=== PATIENT | female | born 1945 | race Caucasian/White ===

== ENCOUNTER 2017-08-20 08:38 | Inpatient (IN) ==
[2017-08-20] MEDS ORDERED: SODIUM CHLORIDE 0.9% 1,000 ML IV STA (09:01)
[2017-08-20] MEDS ORDERED: ONDANSETRON 4 MG/2 ML VIAL IV STA (09:01)
[2017-08-20] MEDS ORDERED: LOPERAMIDE 2 MG CAPSULE PO STA (09:01)
[2017-08-20] MEDS ORDERED: ONDANSETRON 4 MG/2 ML VIAL ONE (09:17)
[2017-08-20] MEDS ORDERED: LOPERAMIDE 2 MG CAPSULE ONE (09:17)
[2017-08-20 09:41] LABS: Basophils # 0.1 10*3/uL (0.0-0.2); Basophils % 0.7 % (0.0-0.8); Eosinophils # 0.1 10*3/uL (0.0-0.87); Eosinophils % 0.4 % (0.00-10.9); Hematocrit 38.2 VOL% (35.7-47.0); Hemoglobin 12.1 GM/DL (12.0-16.0); Immature Granulocytes % 0.4 %; Immature Granulocytes Absolute 0.06 #; Lymphocytes # 2.4 10*3/uL (1.4-4.0); Lymphocytes % 14.8 % (21.3-54.2); Mean Corpuscular HGB Conc 31.7 GM/DL (32-36); Mean Corpuscular Hemoglobin 24 PG (27-34); Mean Platelet Volume 12.7 FL (9.6-12.0); Monocytes % 12.7 % (1.7-12.7); Neutrophils # 11.3 10*3/uL (1.4-7.4); Platelet Count 221 T/CUMM (130-400); Red Blood Count 4.96 MC/CUMM (3.8-5.5); Red Cell Distribution Width 16.3 % (9.3-17.3); White Blood Count 15.9 T/CUMM (4-12)
[2017-08-20 09:59] LABS: Amorphous Crystals,Urine Occasional /HPF (Few); Apearance,Urine Slightly Hazy (Clear); Bacteria,Urine Occasional /HPF (Few); Blood, Urine Negative (Negative); Glucose,Urine (UA) Negative (Negative); Hyaline Casts,Urine 4 /LPF (0-3); Ketones,Urine Negative (Negative); Mucus,Urine Moderate /LPF (Occasional); Nitrite,Urine Negative (Negative); Protein,Urine 100 MG/DL; RBC,Urine 2 /HPF (0-4); Squamous Epithelial Cell,Urine Occasional /HPF (0-10); Urine Color Amber (Yellow); Urine Specific Gravity 1.041 (1.001-1.035); Urine Urobilinogen < 2.0 EU/DL (0.2-1.0); WBC,Urine 3 /HPF (0-6)
[2017-08-20 10:00] LABS: Bilirubin,Urine Small mg/dL (Negative)
[2017-08-20 10:10] LABS: Band Neutrophils 4 % (0-10); Eosinophils 1 % (0-10); Hypochromasia 2+; Lymphocytes 20 % (20-55); Microcytosis 1+; Ovalocytes Slight; Segmented Neutrophils 67 % (50-85); Total Cells Counted 100
[2017-08-20 10:21] LABS: Albumin 2.9 G/DL (3.4-5.0); Bilirubin,Total 0.5 MG/DL (0.2-1.0); Calcium 8.7 MG/DL (8.5-10.1); Osmolality,Calculated 267.5 MOS/KG (273-304); Potassium 4.2 MMOL/L (3.5-5.1); Total Protein 5.9 G/DL (6.4-8.3)
[2017-08-20 13:15] LABS: Lactic Acid 1.2 MMOL/L (0.4-2.0)
[2017-08-20] MEDS ORDERED: PIPERACILLIN/TAZOBACTAM 3,375 MG in SODIUM CHLORIDE 0.9% 100 ML IV STA (13:27)
[2017-08-20] MEDS ORDERED: PIPERACILLIN/TAZOBACTAM 3,375 MG VIAL IV ONE (13:29)
[2017-08-20] MEDS ORDERED: ACETAMINOPHEN 325 MG TABLET PO PRN (14:15)
[2017-08-20] MEDS ORDERED: ONDANSETRON 4 MG/2 ML VIAL IV PRN (14:15)
[2017-08-20] MEDS ORDERED: DEXTROSE 5% NACL 0.45% 1,000 ML IV SCH (14:30)
[2017-08-20] MEDS ORDERED: HEPARIN 1,000 UNIT/1 ML VIAL IV STA (14:45)
[2017-08-20] MEDS ORDERED: HEPARIN 5,000 UNIT/1 ML VIAL ONE (15:12)
[2017-08-20] MEDS: NYSTATIN 500,000 UNIT/5 ML UDCUP SWISH/SWAL SCH ×2 (17:00→20:38)
[2017-08-20] MEDS: HEPARIN DRIP 25,000 UNITS/500 ML PREMIX IV SCH (17:01)
[2017-08-20] MEDS ORDERED: ALBUTEROL 2.5 MG/3 ML NEB RESP TX PRN (17:30)
[2017-08-20] MEDS ORDERED: ASPIRIN CHEW 81 MG TABLET PO ONE (17:33)
[2017-08-20] MEDS: PANTOPRAZOLE 40 MG TABLET PO SCH (18:21)
[2017-08-20] MEDS: SOTALOL 80 MG TABLET PO SCH (20:36)
[2017-08-20] MEDS: CARVEDILOL 3.125 MG TABLET PO SCH (20:37)
[2017-08-20] MEDS: GABAPENTIN 400 MG CAPSULE PO SCH (20:37)
[2017-08-20] MEDS: MONTELUKAST 10 MG TABLET PO SCH (20:37)
[2017-08-20] MEDS ORDERED: PIPERACILLIN/TAZOBACTAM 3,375 MG in SODIUM CHLORIDE 0.9% 100 ML IV SCH (21:00)
[2017-08-20] MEDS: ALBUTEROL/IPRATROPIUM 3 ML NEB RESP TX SCH (21:25)
[2017-08-20] MEDS: oxyCODONE/ACETAMINOPHEN 5-325 MG TABLET PO PRN (22:25)
[2017-08-21] MEDS: ALBUTEROL/IPRATROPIUM 3 ML NEB RESP TX SCH ×4 (01:45→21:09)
[2017-08-21] MEDS ORDERED: PANTOPRAZOLE 40 MG VIAL IV SCH (09:00)
[2017-08-21] MEDS: GABAPENTIN 400 MG CAPSULE PO SCH ×3 (09:21→21:24)
[2017-08-21] MEDS: SOTALOL 80 MG TABLET PO SCH ×2 (09:21→21:24)
[2017-08-21] MEDS: THEOPHYLLINE ER 300 MG TABLET PO SCH ×2 (09:21→16:38)
[2017-08-21] MEDS: DULoxetine 30 MG CAPSULE PO SCH (09:21)
[2017-08-21] MEDS: NYSTATIN 500,000 UNIT/5 ML UDCUP SWISH/SWAL SCH ×4 (09:22→21:23)
[2017-08-21] MEDS: ASPIRIN CHEW 81 MG TABLET PO SCH (09:22)
[2017-08-21] MEDS: CARVEDILOL 3.125 MG TABLET PO SCH ×2 (09:22→21:23)
[2017-08-21] MEDS: PANTOPRAZOLE 40 MG TABLET PO SCH ×2 (09:22→16:37)
[2017-08-21] MEDS: FUROSEMIDE 40 MG TABLET PO SCH (09:22)
[2017-08-21] MEDS: LINACLOTIDE 145 MCG CAPSULE PO SCH (09:24)
[2017-08-21 10:48] LABS: Basophils # 0.1 10*3/uL (0.0-0.2); Basophils % 0.6 % (0.0-0.8); Eosinophils # 0.1 10*3/uL (0.0-0.87); Eosinophils % 0.5 % (0.00-10.9); Hematocrit 34.9 VOL% (35.7-47.0); Hemoglobin 10.7 GM/DL (12.0-16.0); Immature Granulocytes % 0.7 %; Immature Granulocytes Absolute 0.11 #; Lymphocytes # 2.9 10*3/uL (1.4-4.0); Lymphocytes % 17.9 % (21.3-54.2); Mean Corpuscular HGB Conc 30.7 GM/DL (32-36); Mean Corpuscular Hemoglobin 24 PG (27-34); Mean Corpuscular Volume 78.3 FL (87-102); Mean Platelet Volume 11.9 FL (9.6-12.0); Monocytes # 2.1 10*3/uL (0.11-0.8); Monocytes % 13.5 % (1.7-12.7); Neutrophils # 10.6 10*3/uL (1.4-7.4); Neutrophils % 66.8 % (38.7-73.9); Platelet Count 203 T/CUMM (130-400); Red Blood Count 4.46 MC/CUMM (3.8-5.5); Red Cell Distribution Width 16.3 % (9.3-17.3); White Blood Count 15.9 T/CUMM (4-12)
[2017-08-21 10:58] LABS: INR 1.1; PT Patient Result 11.1 SECS
[2017-08-21 11:06] LABS: Partial Thromboplastin Time 50.3 SECS (0-40)
[2017-08-21 11:08] LABS: Lactic Acid 0.9 MMOL/L (0.4-2.0)
[2017-08-21 11:13] LABS: Band Neutrophils 5 % (0-10); Hypochromasia 2+; Lymphocytes 19 % (20-55); Microcytosis 1+; Ovalocytes Slight; Segmented Neutrophils 66 % (50-85); Total Cells Counted 100
[2017-08-21 11:25] LABS: Albumin 2.7 G/DL (3.4-5.0); Bilirubin,Total 0.4 MG/DL (0.2-1.0); Calcium 8.3 MG/DL (8.5-10.1); Osmolality,Calculated 274.8 MOS/KG (273-304); Potassium 3.3 MMOL/L (3.5-5.1); Total Protein 5.8 G/DL (6.4-8.3)
[2017-08-21] MEDS ORDERED: POTASSIUM CHLORIDE 20 MEQ PACK PO ONE (12:40)
[2017-08-21] MEDS: HEPARIN DRIP 25,000 UNITS/500 ML PREMIX IV SCH (14:03)
[2017-08-21] MEDS: oxyCODONE/ACETAMINOPHEN 5-325 MG TABLET PO PRN ×2 (15:20→22:14)
[2017-08-21] MEDS: ONDANSETRON ODT 4 MG TABLET PO PRN (16:54)
[2017-08-21] MEDS: MONTELUKAST 10 MG TABLET PO SCH (21:24)
[2017-08-22] MEDS: ALBUTEROL/IPRATROPIUM 3 ML NEB RESP TX SCH ×4 (00:14→19:41)
[2017-08-22] MEDS: ONDANSETRON ODT 4 MG TABLET PO PRN ×2 (01:54→18:40)
[2017-08-22 05:10] LABS: Calcium 8.3 MG/DL (8.5-10.1); Magnesium 1.7 MG/DL (1.8-2.4); Potassium 3.4 MMOL/L (3.5-5.1)
[2017-08-22] MEDS ORDERED: DIAZEPAM 5 MG TABLET PO ONE (06:00)
[2017-08-22] MEDS ORDERED: fentaNYL 100 MCG/2 ML VIAL IV ONE (06:00)
[2017-08-22] MEDS ORDERED: MIDAZOLAM 2 MG/2 ML VIAL IV ONE (06:00)
[2017-08-22] MEDS: SOTALOL 80 MG TABLET PO SCH ×2 (09:00→20:34)
[2017-08-22] MEDS: ASPIRIN CHEW 81 MG TABLET PO SCH (09:00)
[2017-08-22] MEDS: GABAPENTIN 400 MG CAPSULE PO SCH ×3 (09:00→20:34)
[2017-08-22] MEDS: PANTOPRAZOLE 40 MG TABLET PO SCH ×2 (09:00→15:56)
[2017-08-22] MEDS: DULoxetine 30 MG CAPSULE PO SCH (09:00)
[2017-08-22] MEDS: FUROSEMIDE 40 MG TABLET PO SCH (09:00)
[2017-08-22] MEDS: CARVEDILOL 3.125 MG TABLET PO SCH ×2 (09:01→20:35)
[2017-08-22] MEDS: NYSTATIN 500,000 UNIT/5 ML UDCUP SWISH/SWAL SCH ×4 (09:01→20:35)
[2017-08-22] MEDS: LINACLOTIDE 145 MCG CAPSULE PO SCH (09:02)
[2017-08-22] MEDS: oxyCODONE/ACETAMINOPHEN 5-325 MG TABLET PO PRN ×2 (09:15→15:35)
[2017-08-22] MEDS: THEOPHYLLINE ER 300 MG TABLET PO SCH ×2 (09:25→16:06)
[2017-08-22] MEDS ORDERED: HEPARIN/NACL 0.9% 2 UNITS/ML 2,000 ML IV ONE (10:20)
[2017-08-22] MEDS ORDERED: MIDAZOLAM 2 MG/2 ML VIAL ONE (10:21)
[2017-08-22] MEDS ORDERED: fentaNYL 100 MCG/2 ML VIAL ONE (10:21)
[2017-08-22] MEDS: CLOPIDOGREL 75 MG TABLET PO SCH (14:38)
[2017-08-22] MEDS: MONTELUKAST 10 MG TABLET PO SCH (20:34)
[2017-08-22] MEDS: APIXABAN 5 MG TABLET PO SCH (20:35)
[2017-08-23] MEDS: ALBUTEROL/IPRATROPIUM 3 ML NEB RESP TX SCH ×4 (01:47→20:23)
[2017-08-23] MEDS: ONDANSETRON ODT 4 MG TABLET PO PRN ×2 (02:47→20:07)
[2017-08-23 05:29] LABS: Basophils # 0.1 10*3/uL (0.0-0.2); Basophils % 0.8 % (0.0-0.8); Eosinophils # 0.1 10*3/uL (0.0-0.87); Eosinophils % 0.5 % (0.00-10.9); Hematocrit 31.4 VOL% (35.7-47.0); Hemoglobin 9.9 GM/DL (12.0-16.0); Immature Granulocytes % 1.6 %; Immature Granulocytes Absolute 0.21 #; Lymphocytes # 2.5 10*3/uL (1.4-4.0); Lymphocytes % 18.8 % (21.3-54.2); Mean Corpuscular HGB Conc 31.5 GM/DL (32-36); Mean Corpuscular Hemoglobin 24 PG (27-34); Mean Corpuscular Volume 76.4 FL (87-102); Mean Platelet Volume 12.8 FL (9.6-12.0); Monocytes % 15.3 % (1.7-12.7); NRBC # 0.02 10*3/uL; Neutrophils # 8.3 10*3/uL (1.4-7.4); Platelet Count 221 T/CUMM (130-400); Red Blood Count 4.11 MC/CUMM (3.8-5.5); Red Cell Distribution Width 16.1 % (9.3-17.3); White Blood Count 13.2 T/CUMM (4-12)
[2017-08-23 05:58] LABS: Calcium 7.9 MG/DL (8.5-10.1); Potassium 3.3 MMOL/L (3.5-5.1)
[2017-08-23 06:11] LABS: Hypochromasia 1+; Microcytosis 1+; Ovalocytes Few; Platelet Estimate Normal
[2017-08-23] MEDS: PANTOPRAZOLE 40 MG TABLET PO SCH ×2 (15:24→16:34)
[2017-08-23] MEDS: THEOPHYLLINE ER 300 MG TABLET PO SCH ×2 (15:28→16:45)
[2017-08-23] MEDS: GABAPENTIN 400 MG CAPSULE PO SCH ×3 (15:28→20:06)
[2017-08-23] MEDS: NYSTATIN 500,000 UNIT/5 ML UDCUP SWISH/SWAL SCH ×4 (15:28→22:35)
[2017-08-23] MEDS: DULoxetine 30 MG CAPSULE PO SCH (15:37)
[2017-08-23] MEDS: CLOPIDOGREL 75 MG TABLET PO SCH (15:38)
[2017-08-23] MEDS: CARVEDILOL 3.125 MG TABLET PO SCH ×2 (15:40→20:06)
[2017-08-23] MEDS: ASPIRIN CHEW 81 MG TABLET PO SCH (15:41)
[2017-08-23] MEDS: APIXABAN 5 MG TABLET PO SCH ×2 (15:42→22:25)
[2017-08-23] MEDS: SOTALOL 80 MG TABLET PO SCH ×2 (15:42→20:06)
[2017-08-23] MEDS: FUROSEMIDE 40 MG TABLET PO SCH (15:42)
[2017-08-23] MEDS: oxyCODONE/ACETAMINOPHEN 5-325 MG TABLET PO PRN ×2 (15:45→23:00)
[2017-08-23] MEDS: POTASSIUM CHLORIDE INJ 30 MEQ in SODIUM CHLORIDE 0.9% 1,000 ML IV SCH (15:47)
[2017-08-23 17:03] LABS: HIV Antigen/Antibody Result Nonreactive (Nonreactive)
[2017-08-23] MEDS: MONTELUKAST 10 MG TABLET PO SCH (20:06)
[2017-08-23 20:07] LABS: Apearance,Urine Slightly Hazy (Clear); Bacteria,Urine Occasional /HPF (Few); Bilirubin,Urine Negative (Negative); Blood, Urine Moderate mg/dL (Negative); Glucose,Urine (UA) Negative (Negative); Hyaline Casts,Urine 4 /LPF (0-3); Ketones,Urine Negative (Negative); Mucus,Urine Occasional /LPF (Occasional); Nitrite,Urine Positive (Negative); Protein,Urine Negative; RBC,Urine 14 /HPF (0-4); Squamous Epithelial Cell,Urine Occasional /HPF (0-10); Urine Color Yellow (Yellow); Urine Urobilinogen < 2.0 EU/DL (0.2-1.0); WBC,Urine 11 /HPF (0-6)
[2017-08-23] MEDS: LINACLOTIDE 145 MCG CAPSULE PO SCH (22:36)
[2017-08-24] MEDS: ALBUTEROL/IPRATROPIUM 3 ML NEB RESP TX SCH ×5 (01:25→20:12)
[2017-08-24 04:06] LABS: Basophils # 0.1 10*3/uL (0.0-0.2); Basophils % 0.5 % (0.0-0.8); Eosinophils # 0.1 10*3/uL (0.0-0.87); Eosinophils % 0.9 % (0.00-10.9); Hematocrit 29.5 VOL% (35.7-47.0); Hemoglobin 8.8 GM/DL (12.0-16.0); Immature Granulocytes % 2.4 %; Immature Granulocytes Absolute 0.29 #; Lymphocytes % 16.6 % (21.3-54.2); Mean Corpuscular HGB Conc 29.8 GM/DL (32-36); Mean Corpuscular Hemoglobin 24 PG (27-34); Mean Corpuscular Volume 80.4 FL (87-102); Mean Platelet Volume 12.4 FL (9.6-12.0); Monocytes # 1.5 10*3/uL (0.11-0.8); Monocytes % 12.6 % (1.7-12.7); Neutrophils # 7.9 10*3/uL (1.4-7.4); Platelet Count 193 T/CUMM (130-400); Red Blood Count 3.67 MC/CUMM (3.8-5.5); Red Cell Distribution Width 16.2 % (9.3-17.3); White Blood Count 11.8 T/CUMM (4-12)
[2017-08-24 04:46] LABS: Calcium 7.9 MG/DL (8.5-10.1); Magnesium 1.6 MG/DL (1.8-2.4); Osmolality,Calculated 273.5 MOS/KG (273-304); Potassium 3.4 MMOL/L (3.5-5.1)
[2017-08-24 05:41] LABS: Band Neutrophils 4 % (0-10); Lymphocytes 13 % (20-55); Metamyelocytes 2 %; Promyelocytes 1 %; Segmented Neutrophils 74 % (50-85); Total Cells Counted 100
[2017-08-24 05:42] LABS: Hypochromasia 1+; Microcytosis 1+; Ovalocytes Few; Platelet Estimate Adequate
[2017-08-24] MEDS: CARVEDILOL 3.125 MG TABLET PO SCH ×3 (06:51→21:23)
[2017-08-24] MEDS: POTASSIUM CHLORIDE INJ 30 MEQ in SODIUM CHLORIDE 0.9% 1,000 ML IV SCH (07:13)
[2017-08-24] MEDS ORDERED: GLUCAGON 1 MG VIAL IM PRN (08:03)
[2017-08-24] MEDS ORDERED: DEXTROSE 50% 25 GM/50 ML VIAL IV PRN (08:03)
[2017-08-24] MEDS: NYSTATIN 500,000 UNIT/5 ML UDCUP SWISH/SWAL SCH ×4 (10:16→21:22)
[2017-08-24] MEDS: SOTALOL 80 MG TABLET PO SCH ×2 (10:17→21:23)
[2017-08-24] MEDS: CLOPIDOGREL 75 MG TABLET PO SCH (10:17)
[2017-08-24] MEDS: ASPIRIN EC 81 MG TABLET PO SCH (10:17)
[2017-08-24] MEDS: FUROSEMIDE 40 MG TABLET PO SCH (10:18)
[2017-08-24] MEDS: DULoxetine 30 MG CAPSULE PO SCH (10:18)
[2017-08-24] MEDS: PANTOPRAZOLE 40 MG TABLET PO SCH ×2 (10:18→18:07)
[2017-08-24] MEDS: THEOPHYLLINE ER 300 MG TABLET PO SCH ×2 (10:18→17:42)
[2017-08-24] MEDS: APIXABAN 5 MG TABLET PO SCH ×2 (10:18→21:23)
[2017-08-24] MEDS: GABAPENTIN 400 MG CAPSULE PO SCH ×3 (10:22→21:22)
[2017-08-24] MEDS ORDERED: LOPERAMIDE 0.2 MG/ML 30 ML/BOTTLE PO ONE (12:11)
[2017-08-24] MEDS ORDERED: LOPERAMIDE 0.2 MG/ML 30 ML/BOTTLE PO PRN (12:12)
[2017-08-24] MEDS: oxyCODONE/ACETAMINOPHEN 5-325 MG TABLET PO PRN ×2 (13:14→21:23)
[2017-08-24] MEDS: LACTOBACILLUS ACIDOPHILUS/BULGARICUS 1 PACKET PO SCH ×2 (15:28→21:33)
[2017-08-24] MEDS: LOPERAMIDE 2 MG CAPSULE PO PRN ×2 (18:07→21:33)
[2017-08-24] MEDS: ONDANSETRON ODT 4 MG TABLET PO PRN (18:07)
[2017-08-24] MEDS: MONTELUKAST 10 MG TABLET PO SCH (21:23)
[2017-08-25] MEDS: ALBUTEROL/IPRATROPIUM 3 ML NEB RESP TX SCH ×4 (02:05→20:56)
[2017-08-25 05:41] LABS: Basophils % 0.3 % (0.0-0.8); Eosinophils # 0.1 10*3/uL (0.0-0.87); Eosinophils % 0.9 % (0.00-10.9); Hematocrit 28.6 VOL% (35.7-47.0); Immature Granulocytes % 2.3 %; Immature Granulocytes Absolute 0.27 #; Lymphocytes # 2.2 10*3/uL (1.4-4.0); Lymphocytes % 18.3 % (21.3-54.2); Mean Corpuscular HGB Conc 31.5 GM/DL (32-36); Mean Corpuscular Hemoglobin 24 PG (27-34); Mean Corpuscular Volume 77.3 FL (87-102); Mean Platelet Volume 12.4 FL (9.6-12.0); Monocytes # 1.4 10*3/uL (0.11-0.8); Neutrophils % 66.2 % (38.7-73.9); Platelet Count 204 T/CUMM (130-400); Red Cell Distribution Width 16.5 % (9.3-17.3)
[2017-08-25 06:06] LABS: Giant Platelets Few; Hypochromasia 1+; Microcytosis Slight; Ovalocytes Slight; Platelet Estimate Adequate
[2017-08-25 06:22] LABS: Magnesium 1.4 MG/DL (1.8-2.4); Osmolality,Calculated 278.3 MOS/KG (273-304); Potassium 3.7 MMOL/L (3.5-5.1)
[2017-08-25] MEDS ORDERED: PROPOFOL 200 MG/20 ML VIAL IV ONE (07:39)
[2017-08-25] MEDS ORDERED: LIDOCAINE 2% 5 ML VIAL ONE (07:39)
[2017-08-25] MEDS: oxyCODONE/ACETAMINOPHEN 5-325 MG TABLET PO PRN ×2 (11:10→17:54)
[2017-08-25] MEDS: THEOPHYLLINE ER 300 MG TABLET PO SCH ×2 (11:13→17:41)
[2017-08-25] MEDS: ASPIRIN EC 81 MG TABLET PO SCH (11:13)
[2017-08-25] MEDS: PANTOPRAZOLE 40 MG TABLET PO SCH ×2 (11:13→17:41)
[2017-08-25] MEDS: FUROSEMIDE 40 MG TABLET PO SCH (11:14)
[2017-08-25] MEDS: LACTOBACILLUS ACIDOPHILUS/BULGARICUS 1 PACKET PO SCH ×3 (11:14→21:50)
[2017-08-25] MEDS: NYSTATIN 500,000 UNIT/5 ML UDCUP SWISH/SWAL SCH ×3 (11:14→21:50)
[2017-08-25] MEDS: CARVEDILOL 3.125 MG TABLET PO SCH ×2 (11:14→21:50)
[2017-08-25] MEDS: GABAPENTIN 400 MG CAPSULE PO SCH ×3 (11:14→21:51)
[2017-08-25] MEDS: APIXABAN 5 MG TABLET PO SCH ×2 (11:14→21:50)
[2017-08-25] MEDS: SOTALOL 80 MG TABLET PO SCH ×2 (11:14→21:50)
[2017-08-25] MEDS: CLOPIDOGREL 75 MG TABLET PO SCH (11:14)
[2017-08-25] MEDS: DULoxetine 30 MG CAPSULE PO SCH (11:14)
[2017-08-25] MEDS ORDERED: FUROSEMIDE 40 MG/4 ML VIAL IV ONE (14:14)
[2017-08-25] MEDS ORDERED: ACETAMINOPHEN 325 MG TABLET PO PRN (17:03)
[2017-08-25] MEDS ORDERED: cefTAZidime 1,000 MG in SYRINGE 1 EACH IV SCH (18:00)
[2017-08-25] MEDS: CLINDAMYCIN INJ 600 MG in PREMIX 1 EACH IV SCH (18:58)
[2017-08-25] MEDS: methylPREDNISolone SOD SUC 40 MG/1 ML VIAL IV SCH (18:58)
[2017-08-25] MEDS: POTASSIUM CHLORIDE INJ 30 MEQ in SODIUM CHLORIDE 0.9% 1,000 ML IV SCH (21:39)
[2017-08-25] MEDS: cefTAZidime 500 MG in SYRINGE 1 EACH IV SCH (21:50)
[2017-08-25] MEDS: MONTELUKAST 10 MG TABLET PO SCH (21:50)
[2017-08-26] MEDS: ALBUTEROL/IPRATROPIUM 3 ML NEB RESP TX SCH ×4 (00:52→19:46)
[2017-08-26] MEDS: CLINDAMYCIN INJ 600 MG in PREMIX 1 EACH IV SCH ×3 (01:25→17:39)
[2017-08-26] MEDS: methylPREDNISolone SOD SUC 40 MG/1 ML VIAL IV SCH (05:17)
[2017-08-26] MEDS: cefTAZidime 500 MG in SYRINGE 1 EACH IV SCH ×3 (05:17→21:08)
[2017-08-26 06:23] LABS: Basophils # 0.1 10*3/uL (0.0-0.2); Basophils % 0.3 % (0.0-0.8); Hemoglobin 9.3 GM/DL (12.0-16.0); Immature Granulocytes % 1.4 %; Immature Granulocytes Absolute 0.26 #; Lymphocytes # 1.6 10*3/uL (1.4-4.0); Lymphocytes % 8.4 % (21.3-54.2); Mean Corpuscular Hemoglobin 24 PG (27-34); Mean Corpuscular Volume 77.9 FL (87-102); Mean Platelet Volume 12.5 FL (9.6-12.0); Monocytes # 0.4 10*3/uL (0.11-0.8); Monocytes % 2.2 % (1.7-12.7); Neutrophils # 16.3 10*3/uL (1.4-7.4); Neutrophils % 87.7 % (38.7-73.9); Platelet Count 225 T/CUMM (130-400); Red Blood Count 3.85 MC/CUMM (3.8-5.5); Red Cell Distribution Width 16.4 % (9.3-17.3); White Blood Count 18.6 T/CUMM (4-12)
[2017-08-26 06:56] LABS: Calcium 7.9 MG/DL (8.5-10.1); Magnesium 1.6 MG/DL (1.8-2.4); Osmolality,Calculated 280.4 MOS/KG (273-304); Potassium 3.8 MMOL/L (3.5-5.1)
[2017-08-26 07:43] LABS: Elliptocytes 1+; Hypochromasia 2+; Microcytosis 2+
[2017-08-26] MEDS: PANTOPRAZOLE 40 MG TABLET PO SCH ×2 (09:09→16:44)
[2017-08-26] MEDS: THEOPHYLLINE ER 300 MG TABLET PO SCH ×2 (09:09→16:47)
[2017-08-26] MEDS: ASPIRIN EC 81 MG TABLET PO SCH (09:10)
[2017-08-26] MEDS: SOTALOL 80 MG TABLET PO SCH ×2 (09:10→21:08)
[2017-08-26] MEDS: FUROSEMIDE 40 MG TABLET PO SCH (09:11)
[2017-08-26] MEDS: APIXABAN 5 MG TABLET PO SCH ×2 (09:13→21:08)
[2017-08-26] MEDS: DULoxetine 30 MG CAPSULE PO SCH (09:14)
[2017-08-26] MEDS: CLOPIDOGREL 75 MG TABLET PO SCH (09:14)
[2017-08-26] MEDS: GABAPENTIN 400 MG CAPSULE PO SCH ×3 (09:14→21:08)
[2017-08-26] MEDS: CARVEDILOL 3.125 MG TABLET PO SCH ×2 (09:14→21:08)
[2017-08-26] MEDS: NYSTATIN 500,000 UNIT/5 ML UDCUP SWISH/SWAL SCH ×4 (09:15→21:08)
[2017-08-26] MEDS: LACTOBACILLUS ACIDOPHILUS/BULGARICUS 1 PACKET PO SCH ×3 (09:21→21:08)
[2017-08-26] MEDS: oxyCODONE/ACETAMINOPHEN 5-325 MG TABLET PO PRN ×2 (09:56→17:37)
[2017-08-26] MEDS: MONTELUKAST 10 MG TABLET PO SCH (21:08)
[2017-08-27] MEDS: oxyCODONE/ACETAMINOPHEN 5-325 MG TABLET PO PRN ×2 (01:06→17:51)
[2017-08-27] MEDS: CLINDAMYCIN INJ 600 MG in PREMIX 1 EACH IV SCH ×3 (01:07→17:33)
[2017-08-27] MEDS: ALBUTEROL/IPRATROPIUM 3 ML NEB RESP TX SCH ×4 (01:51→20:04)
[2017-08-27] MEDS: cefTAZidime 500 MG in SYRINGE 1 EACH IV SCH ×3 (05:05→20:22)
[2017-08-27] MEDS: DULoxetine 30 MG CAPSULE PO SCH (09:12)
[2017-08-27] MEDS: SOTALOL 80 MG TABLET PO SCH ×2 (09:13→20:23)
[2017-08-27] MEDS: GABAPENTIN 400 MG CAPSULE PO SCH ×3 (09:13→20:23)
[2017-08-27] MEDS: CLOPIDOGREL 75 MG TABLET PO SCH (09:13)
[2017-08-27] MEDS: LOPERAMIDE 2 MG CAPSULE PO PRN (09:14)
[2017-08-27] MEDS: PANTOPRAZOLE 40 MG TABLET PO SCH ×2 (09:14→17:31)
[2017-08-27] MEDS: APIXABAN 5 MG TABLET PO SCH ×2 (09:14→20:23)
[2017-08-27] MEDS: ASPIRIN EC 81 MG TABLET PO SCH (09:15)
[2017-08-27] MEDS: FUROSEMIDE 40 MG TABLET PO SCH (09:15)
[2017-08-27] MEDS: CARVEDILOL 3.125 MG TABLET PO SCH ×2 (09:16→20:23)
[2017-08-27] MEDS: NYSTATIN 500,000 UNIT/5 ML UDCUP SWISH/SWAL SCH ×4 (09:16→20:23)
[2017-08-27] MEDS: LACTOBACILLUS ACIDOPHILUS/BULGARICUS 1 PACKET PO SCH ×3 (09:17→20:23)
[2017-08-27] MEDS: THEOPHYLLINE ER 300 MG TABLET PO SCH ×2 (09:17→18:06)
[2017-08-27] MEDS ORDERED: BENZOCAINE/MENTHOL LOZENGE 18/BOX PO PRN (12:49)
[2017-08-27] MEDS: MONTELUKAST 10 MG TABLET PO SCH (20:23)
[2017-08-28] MEDS: ALBUTEROL/IPRATROPIUM 3 ML NEB RESP TX SCH ×3 (01:02→14:30)
[2017-08-28] MEDS ORDERED: CEFUROXIME 250 MG TABLET PO SCH (09:00)
[2017-08-28] MEDS: THEOPHYLLINE ER 300 MG TABLET PO SCH (09:51)
[2017-08-28] MEDS: PANTOPRAZOLE 40 MG TABLET PO SCH (09:51)
[2017-08-28] MEDS: ASPIRIN EC 81 MG TABLET PO SCH (09:52)
[2017-08-28] MEDS: SOTALOL 80 MG TABLET PO SCH (09:52)
[2017-08-28] MEDS: DULoxetine 30 MG CAPSULE PO SCH (09:53)
[2017-08-28] MEDS: APIXABAN 5 MG TABLET PO SCH (09:53)
[2017-08-28] MEDS: CARVEDILOL 3.125 MG TABLET PO SCH (09:53)
[2017-08-28] MEDS: FUROSEMIDE 40 MG TABLET PO SCH (09:54)
[2017-08-28] MEDS: NYSTATIN 500,000 UNIT/5 ML UDCUP SWISH/SWAL SCH ×2 (09:54→13:26)
[2017-08-28] MEDS: GABAPENTIN 400 MG CAPSULE PO SCH (09:54)
[2017-08-28] MEDS: LACTOBACILLUS ACIDOPHILUS/BULGARICUS 1 PACKET PO SCH (09:54)
[2017-08-28] MEDS: CLOPIDOGREL 75 MG TABLET PO SCH (09:54)
[2017-08-28 11:59] VITALS: BP 123/66
== END 2017-08-28 14:55 | disposition home or self-care (01) | DRG 356 ==
LOC: EDUNIT# → EDBD → N.ED 08:38 → N.3E 13:45 → N.EDINP 14:15 → N.3E 15:33
PROVIDERS: ADMIT Surgery; ATTEND Surgery
PROC: IRAGMES (2017-08-22 10:30)

== ENCOUNTER 2017-09-07 05:51 | Inpatient (IN) ==
[2017-09-07] MEDS ORDERED: SODIUM CHLORIDE 0.9% 500 ML IV STA (06:18)
[2017-09-07] MEDS ORDERED: methylPREDNISolone SOD SUC 125 MG/2 ML VIAL IV STA (06:18)
[2017-09-07] MEDS ORDERED: ALBUTEROL 2.5 MG/3 ML NEB RESP TX SCH (06:30)
[2017-09-07] MEDS ORDERED: methylPREDNISolone SOD SUC 125 MG/2 ML VIAL ONE (07:00)
[2017-09-07 07:04] LABS: Eosinophils # 0.1 10*3/uL (0.0-0.87); Eosinophils % 0.4 % (0.00-10.9); Hemoglobin 7.7 GM/DL (12.0-16.0)
[2017-09-07 07:08] LABS: Basophils # 0.1 10*3/uL (0.0-0.2); Basophils % 0.3 % (0.0-0.8); Hematocrit 25.6 VOL% (35.7-47.0); Immature Granulocytes % 0.8 %; Immature Granulocytes Absolute 0.13 #; Lymphocytes # 1.9 10*3/uL (1.4-4.0); Mean Corpuscular HGB Conc 30.1 GM/DL (32-36); Mean Corpuscular Hemoglobin 24 PG (27-34); Mean Corpuscular Volume 80.3 FL (87-102); Mean Platelet Volume 11.9 FL (9.6-12.0); Monocytes % 6.3 % (1.7-12.7); Neutrophils # 12.5 10*3/uL (1.4-7.4); Neutrophils % 80.2 % (38.7-73.9); Platelet Count 292 T/CUMM (130-400); Red Blood Count 3.19 MC/CUMM (3.8-5.5); Red Cell Distribution Width 17.1 % (9.3-17.3); White Blood Count 15.6 T/CUMM (4-12)
[2017-09-07 07:18] LABS: INR 1.2; PT Patient Result 12.8 SECS; Partial Thromboplastin Time 31.5 SECS (0-40)
[2017-09-07] MEDS ORDERED: LEVOFLOXACIN INJ 500 MG in PREMIX 1 EACH IV STA (07:38)
[2017-09-07 07:39] LABS: Alanine Aminotransferase 12 U/L (13-56); Albumin 2.6 G/DL (3.4-5.0); Alkaline Phosphatase 57 U/L (45-117); Aspartate Amino Transferase 12 U/L (0-37); Blood Urea Nitrogen 9 MG/DL (7-18); Calcium 8.5 MG/DL (8.5-10.1); Glucose 123 MG/DL (74-106); Osmolality,Calculated 276.5 MOS/KG (273-304); Potassium 4.8 MMOL/L (3.5-5.1); Sodium 139 MMOL/L (136-145); Total Protein 5.9 G/DL (6.4-8.3); Troponin I Only < 0.015 NG/ML (0.00-0.045)
[2017-09-07] MEDS ORDERED: LEVOFLOXACIN INJ 100 ML IV ONE (07:42)
[2017-09-07] MEDS ORDERED: ALBUTEROL 2.5 MG/3 ML NEB RESP TX PRN (09:00)
[2017-09-07] MEDS ORDERED: APIXABAN 5 MG TABLET PO SCH (09:00)
[2017-09-07] MEDS: PIPERACILLIN/TAZOBACTAM 3,375 MG in SODIUM CHLORIDE 0.9% 100 ML IV SCH ×2 (10:48→17:32)
[2017-09-07] MEDS: DULoxetine 30 MG CAPSULE PO SCH (10:48)
[2017-09-07] MEDS: FENOFIBRATE 160 MG TABLET PO SCH (10:49)
[2017-09-07] MEDS: CARVEDILOL 3.125 MG TABLET PO SCH ×2 (10:49→20:44)
[2017-09-07] MEDS: EZETIMIBE 10 MG TABLET PO SCH (10:49)
[2017-09-07] MEDS: SOTALOL 80 MG TABLET PO SCH ×2 (10:49→20:44)
[2017-09-07] MEDS: CLOPIDOGREL 75 MG TABLET PO SCH (10:49)
[2017-09-07] MEDS: NICOTINE 21 MG/24 HR PATCH TRANSDERM SCH (10:49)
[2017-09-07] MEDS ORDERED: SODIUM CHLORIDE 0.9% 1,000 ML IV PRN (11:14)
[2017-09-07] MEDS ORDERED: ALBUTEROL/IPRATROPIUM 3 ML NEB RESP TX ONE (11:23)
[2017-09-07] MEDS ORDERED: FUROSEMIDE 40 MG/4 ML VIAL IV ONE (11:44)
[2017-09-07 12:14] LABS: ABG Base Excess 3.3 MMOL/L (-2.5-2.5); ABG HCO3 27.4 MMOL/L (20-26); ABG Oxygen Saturation 96.1 % (95-100); ABG PCO2 38.4 MM HG (35-48); ABG TCO2 25.6 MMOL/L (23-27)
[2017-09-07] MEDS ORDERED: ALBUTEROL/IPRATROPIUM 3 ML NEB RESP TX SCH (13:00)
[2017-09-07] MEDS: INSULIN LISPRO 100 UNIT/ML SUBCUT SCH ×3 (13:15→21:15)
[2017-09-07] MEDS: GABAPENTIN 400 MG CAPSULE PO SCH ×2 (13:15→21:09)
[2017-09-07] MEDS: oxyCODONE/ACETAMINOPHEN 5-325 MG TABLET PO PRN ×2 (14:10→20:46)
[2017-09-07] MEDS: methylPREDNISolone SOD SUC 125 MG/2 ML VIAL IV SCH ×2 (14:10→17:32)
[2017-09-07] MEDS: ALBUTEROL/IPRATROPIUM 3 ML NEB RESP TX SCH ×3 (14:14→23:35)
[2017-09-07] MEDS: PANTOPRAZOLE 40 MG TABLET PO SCH (17:32)
[2017-09-07] MEDS ORDERED: MAGNESIUM CITRATE 300 ML BOTTLE PO ONE (18:00)
[2017-09-07 18:57] LABS: Hematocrit 27.9 VOL% (35.7-47.0); Hemoglobin 8.4 GM/DL (12.0-16.0)
[2017-09-07] MEDS: MONTELUKAST 10 MG TABLET PO SCH (20:44)
[2017-09-07] MEDS: ATORVASTATIN 10 MG TABLET PO SCH (20:45)
[2017-09-08] MEDS: methylPREDNISolone SOD SUC 125 MG/2 ML VIAL IV SCH ×4 (01:14→17:38)
[2017-09-08] MEDS: PIPERACILLIN/TAZOBACTAM 3,375 MG in SODIUM CHLORIDE 0.9% 100 ML IV SCH ×3 (01:15→21:24)
[2017-09-08] MEDS: ALBUTEROL/IPRATROPIUM 3 ML NEB RESP TX SCH ×6 (02:55→23:46)
[2017-09-08 05:30] LABS: Basophils % 0.1 % (0.0-0.8); Hematocrit 25.8 VOL% (35.7-47.0); Hemoglobin 8.2 GM/DL (12.0-16.0); Immature Granulocytes % 0.8 %; Immature Granulocytes Absolute 0.12 #; Lymphocytes # 1.3 10*3/uL (1.4-4.0); Lymphocytes % 8.1 % (21.3-54.2); Mean Corpuscular HGB Conc 31.8 GM/DL (32-36); Mean Corpuscular Hemoglobin 25 PG (27-34); Mean Corpuscular Volume 79.1 FL (87-102); Mean Platelet Volume 11.5 FL (9.6-12.0); Monocytes # 0.4 10*3/uL (0.11-0.8); Monocytes % 2.2 % (1.7-12.7); Neutrophils % 88.8 % (38.7-73.9); Platelet Count 282 T/CUMM (130-400); Red Blood Count 3.26 MC/CUMM (3.8-5.5); Red Cell Distribution Width 16.8 % (9.3-17.3); White Blood Count 15.7 T/CUMM (4-12)
[2017-09-08 05:56] LABS: Calcium 8.4 MG/DL (8.5-10.1); Osmolality,Calculated 285.1 MOS/KG (273-304); Potassium 4.5 MMOL/L (3.5-5.1)
[2017-09-08] MEDS: INSULIN LISPRO 100 UNIT/ML SUBCUT SCH ×4 (08:36→21:24)
[2017-09-08] MEDS: DULoxetine 30 MG CAPSULE PO SCH (09:05)
[2017-09-08] MEDS: GABAPENTIN 400 MG CAPSULE PO SCH ×2 (09:05→21:25)
[2017-09-08] MEDS: FENOFIBRATE 160 MG TABLET PO SCH (09:05)
[2017-09-08] MEDS: CLOPIDOGREL 75 MG TABLET PO SCH ×3 (09:05→09:28)
[2017-09-08] MEDS: LEVOFLOXACIN INJ 750 MG in PREMIX 1 EACH IV SCH (09:05)
[2017-09-08] MEDS: CARVEDILOL 3.125 MG TABLET PO SCH ×2 (09:05→21:25)
[2017-09-08] MEDS: PANTOPRAZOLE 40 MG TABLET PO SCH ×2 (09:05→17:08)
[2017-09-08] MEDS: NICOTINE 21 MG/24 HR PATCH TRANSDERM SCH (09:05)
[2017-09-08] MEDS: EZETIMIBE 10 MG TABLET PO SCH (09:05)
[2017-09-08] MEDS: SOTALOL 80 MG TABLET PO SCH ×2 (09:05→21:25)
[2017-09-08] MEDS ORDERED: FUROSEMIDE 20 MG/2 ML VIAL IV PRN (09:10)
[2017-09-08] MEDS ORDERED: SODIUM CHLORIDE 0.9% 1,000 ML IV PRN (09:10)
[2017-09-08] MEDS: oxyCODONE/ACETAMINOPHEN 5-325 MG TABLET PO PRN ×2 (11:53→21:25)
[2017-09-08] MEDS: INSULIN GLARGINE 100 UNIT/ML SUBCUT SCH (15:12)
[2017-09-08 18:35] LABS: Hematocrit 32.9 VOL% (35.7-47.0); Hemoglobin 10.3 GM/DL (12.0-16.0)
[2017-09-08] MEDS: MONTELUKAST 10 MG TABLET PO SCH (21:24)
[2017-09-08] MEDS: ATORVASTATIN 10 MG TABLET PO SCH (21:25)
[2017-09-09] MEDS: methylPREDNISolone SOD SUC 125 MG/2 ML VIAL IV SCH ×5 (01:05→23:34)
[2017-09-09] MEDS: SIMETHICONE CHEW 125 MG TABLET PO SCH ×2 (01:40→22:17)
[2017-09-09] MEDS: ALBUTEROL/IPRATROPIUM 3 ML NEB RESP TX SCH ×6 (04:07→23:20)
[2017-09-09 05:18] LABS: Basophils % 0.1 % (0.0-0.8); Hematocrit 32.8 VOL% (35.7-47.0); Hemoglobin 10.3 GM/DL (12.0-16.0); Immature Granulocytes % 0.6 %; Immature Granulocytes Absolute 0.08 #; Lymphocytes # 1.1 10*3/uL (1.4-4.0); Lymphocytes % 8.6 % (21.3-54.2); Mean Corpuscular HGB Conc 31.4 GM/DL (32-36); Mean Corpuscular Hemoglobin 26 PG (27-34); Mean Corpuscular Volume 82.2 FL (87-102); Mean Platelet Volume 11.7 FL (9.6-12.0); Monocytes # 0.3 10*3/uL (0.11-0.8); Monocytes % 2.4 % (1.7-12.7); Neutrophils # 11.2 10*3/uL (1.4-7.4); Neutrophils % 88.3 % (38.7-73.9); Platelet Count 266 T/CUMM (130-400); Red Blood Count 3.99 MC/CUMM (3.8-5.5); Red Cell Distribution Width 16.7 % (9.3-17.3); White Blood Count 12.7 T/CUMM (4-12)
[2017-09-09] MEDS: PIPERACILLIN/TAZOBACTAM 3,375 MG in SODIUM CHLORIDE 0.9% 100 ML IV SCH ×3 (05:26→20:22)
[2017-09-09 05:43] LABS: Calcium 8.4 MG/DL (8.5-10.1); Osmolality,Calculated 283.4 MOS/KG (273-304); Potassium 4.7 MMOL/L (3.5-5.1)
[2017-09-09] MEDS: INSULIN LISPRO 100 UNIT/ML SUBCUT SCH ×4 (08:36→20:37)
[2017-09-09] MEDS: DULoxetine 30 MG CAPSULE PO SCH (09:25)
[2017-09-09] MEDS: CARVEDILOL 3.125 MG TABLET PO SCH ×2 (09:25→20:23)
[2017-09-09] MEDS: NICOTINE 21 MG/24 HR PATCH TRANSDERM SCH (09:26)
[2017-09-09] MEDS: FENOFIBRATE 160 MG TABLET PO SCH (09:26)
[2017-09-09] MEDS: LEVOFLOXACIN INJ 750 MG in PREMIX 1 EACH IV SCH (09:26)
[2017-09-09] MEDS: SOTALOL 80 MG TABLET PO SCH ×2 (09:26→20:22)
[2017-09-09] MEDS: PANTOPRAZOLE 40 MG TABLET PO SCH ×2 (09:26→16:31)
[2017-09-09] MEDS: GABAPENTIN 400 MG CAPSULE PO SCH ×2 (09:26→20:22)
[2017-09-09] MEDS: EZETIMIBE 10 MG TABLET PO SCH (09:26)
[2017-09-09] MEDS: oxyCODONE/ACETAMINOPHEN 5-325 MG TABLET PO PRN ×2 (09:33→20:23)
[2017-09-09] MEDS: INSULIN GLARGINE 100 UNIT/ML SUBCUT SCH (09:35)
[2017-09-09] MEDS: MONTELUKAST 10 MG TABLET PO SCH (20:22)
[2017-09-09] MEDS: ATORVASTATIN 10 MG TABLET PO SCH (20:23)
[2017-09-10] MEDS: ALBUTEROL/IPRATROPIUM 3 ML NEB RESP TX SCH ×5 (03:19→20:36)
[2017-09-10] MEDS: PIPERACILLIN/TAZOBACTAM 3,375 MG in SODIUM CHLORIDE 0.9% 100 ML IV SCH ×3 (03:40→21:21)
[2017-09-10 04:56] LABS: Basophils % 0.1 % (0.0-0.8); Hematocrit 32.4 VOL% (35.7-47.0); Hemoglobin 10.2 GM/DL (12.0-16.0); Immature Granulocytes % 0.7 %; Immature Granulocytes Absolute 0.06 #; Lymphocytes # 0.9 10*3/uL (1.4-4.0); Lymphocytes % 10.7 % (21.3-54.2); Mean Corpuscular HGB Conc 31.5 GM/DL (32-36); Mean Corpuscular Hemoglobin 26 PG (27-34); Mean Platelet Volume 11.4 FL (9.6-12.0); Monocytes # 0.2 10*3/uL (0.11-0.8); Monocytes % 2.9 % (1.7-12.7); Neutrophils # 7.2 10*3/uL (1.4-7.4); Neutrophils % 85.6 % (38.7-73.9); Platelet Count 295 T/CUMM (130-400); Red Cell Distribution Width 16.7 % (9.3-17.3); White Blood Count 8.4 T/CUMM (4-12)
[2017-09-10] MEDS: methylPREDNISolone SOD SUC 125 MG/2 ML VIAL IV SCH ×3 (05:05→14:00)
[2017-09-10 05:26] LABS: Osmolality,Calculated 286.3 MOS/KG (273-304); Potassium 4.6 MMOL/L (3.5-5.1)
[2017-09-10] MEDS: PANTOPRAZOLE 40 MG TABLET PO SCH ×2 (08:56→17:21)
[2017-09-10] MEDS: NICOTINE 21 MG/24 HR PATCH TRANSDERM SCH (08:56)
[2017-09-10] MEDS: EZETIMIBE 10 MG TABLET PO SCH (08:56)
[2017-09-10] MEDS: FENOFIBRATE 160 MG TABLET PO SCH (08:56)
[2017-09-10] MEDS: CARVEDILOL 3.125 MG TABLET PO SCH ×2 (08:56→21:18)
[2017-09-10] MEDS: INSULIN LISPRO 100 UNIT/ML SUBCUT SCH ×4 (08:56→21:15)
[2017-09-10] MEDS: LEVOFLOXACIN INJ 750 MG in PREMIX 1 EACH IV SCH (08:56)
[2017-09-10] MEDS: GABAPENTIN 400 MG CAPSULE PO SCH ×2 (08:56→21:20)
[2017-09-10] MEDS: SOTALOL 80 MG TABLET PO SCH ×2 (08:56→21:16)
[2017-09-10] MEDS: DULoxetine 30 MG CAPSULE PO SCH (08:56)
[2017-09-10] MEDS: FUROSEMIDE 40 MG TABLET PO SCH (08:57)
[2017-09-10] MEDS: INSULIN GLARGINE 100 UNIT/ML SUBCUT SCH (08:57)
[2017-09-10] MEDS: oxyCODONE/ACETAMINOPHEN 5-325 MG TABLET PO PRN ×2 (10:34→21:17)
[2017-09-10] MEDS: LOSARTAN 50 MG TABLET PO SCH (14:00)
[2017-09-10] MEDS: ACETAMINOPHEN 325 MG TABLET PO PRN (15:48)
[2017-09-10] MEDS: MONTELUKAST 10 MG TABLET PO SCH (21:16)
[2017-09-10] MEDS: SIMETHICONE CHEW 125 MG TABLET PO SCH (21:17)
[2017-09-10] MEDS: ATORVASTATIN 10 MG TABLET PO SCH (21:17)
[2017-09-11] MEDS: ACETAMINOPHEN 325 MG TABLET PO PRN ×2 (00:01→08:57)
[2017-09-11] MEDS: methylPREDNISolone SOD SUC 125 MG/2 ML VIAL IV SCH (00:02)
[2017-09-11] MEDS: ALBUTEROL/IPRATROPIUM 3 ML NEB RESP TX SCH ×5 (00:13→14:42)
[2017-09-11] MEDS: PIPERACILLIN/TAZOBACTAM 3,375 MG in SODIUM CHLORIDE 0.9% 100 ML IV SCH (04:04)
[2017-09-11 06:37] LABS: Basophils % 0.1 % (0.0-0.8); Hematocrit 34.8 VOL% (35.7-47.0); Hemoglobin 10.9 GM/DL (12.0-16.0); Immature Granulocytes % 0.6 %; Immature Granulocytes Absolute 0.04 #; Lymphocytes % 14.8 % (21.3-54.2); Mean Corpuscular HGB Conc 31.3 GM/DL (32-36); Mean Corpuscular Hemoglobin 25 PG (27-34); Mean Corpuscular Volume 81.1 FL (87-102); Mean Platelet Volume 11.6 FL (9.6-12.0); Monocytes # 0.4 10*3/uL (0.11-0.8); Monocytes % 6.1 % (1.7-12.7); Neutrophils # 5.2 10*3/uL (1.4-7.4); Neutrophils % 78.4 % (38.7-73.9); Platelet Count 234 T/CUMM (130-400); Red Blood Count 4.29 MC/CUMM (3.8-5.5); Red Cell Distribution Width 16.5 % (9.3-17.3); White Blood Count 6.7 T/CUMM (4-12)
[2017-09-11] MEDS: NICOTINE 21 MG/24 HR PATCH TRANSDERM SCH (08:57)
[2017-09-11] MEDS: INSULIN GLARGINE 100 UNIT/ML SUBCUT SCH (08:58)
[2017-09-11] MEDS: LEVOFLOXACIN INJ 750 MG in PREMIX 1 EACH IV SCH (08:58)
[2017-09-11] MEDS: SOTALOL 80 MG TABLET PO SCH (09:01)
[2017-09-11] MEDS: FUROSEMIDE 40 MG TABLET PO SCH (09:01)
[2017-09-11] MEDS: GABAPENTIN 400 MG CAPSULE PO SCH (09:01)
[2017-09-11] MEDS: EZETIMIBE 10 MG TABLET PO SCH (09:01)
[2017-09-11] MEDS: DULoxetine 30 MG CAPSULE PO SCH (09:01)
[2017-09-11] MEDS: PANTOPRAZOLE 40 MG TABLET PO SCH (09:02)
[2017-09-11] MEDS: CARVEDILOL 3.125 MG TABLET PO SCH (09:02)
[2017-09-11] MEDS: FENOFIBRATE 160 MG TABLET PO SCH (09:02)
[2017-09-11] MEDS: LOSARTAN 50 MG TABLET PO SCH (09:02)
[2017-09-11] MEDS: oxyCODONE/ACETAMINOPHEN 5-325 MG TABLET PO PRN (11:40)
[2017-09-11 13:07] VITALS: BP 142/81
== END 2017-09-11 15:00 | disposition home health service (06) | DRG 193 ==
LOC: EDUNIT# → EDBD → N.ED 05:51 → N.EDINP 07:41 → SUATTDRO 07:41 → N.5E 08:33
PROVIDERS: ADMIT Internal Medicine; ATTEND Internal Medicine